=== PATIENT | female | born 1950 | race Caucasian/White ===

== ENCOUNTER 2016-02-18 13:53 | Emergency (ER) | payer BC ==
[2016-02-18] MEDS ORDERED: ONDANSETRON 4 MG VIAL ONE (15:05)
[2016-02-18] MEDS ORDERED: LORAZEPAM 2 MG/ML VIAL ONE (15:06)
== END 2016-02-18 19:05 | disposition home or self-care (01) ==
LOC: ER 13:53
DX: R07.2 Precordial pain (principal); Z79.899 Other long term (current) drug therapy
CPT/HCPCS: 36415; 71010; 80053; 82550; 83735; 84484; 85025; 85610; 85730; 93005; 96374; 96375